=== PATIENT | male | born 1970 | race African-American/Black ===

== ENCOUNTER 2019-03-23 23:15 | Emergency (ER) | payer OTHER ==
[~2019-03-23] VITALS: Ht 177.8 cm; Wt 110.2 kg
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
[2019-03-23 23:37] VITALS: BP 120/73
[2019-03-23] MEDS ORDERED: CYCLOBENZAPRINE10 MG ORAL (23:58)
[2019-03-23] MEDS ORDERED: IBUPROFEN600 MG ORAL (23:58)
[2019-03-24 00:04] VITALS: BP 121/69
--- NOTE | 2019-03-24 00:05 | NUR ---
ER DISCHARGE NOTE: Patient is cleared to be discharged per ERMD, pt is aox4, on room air, with stable vital signs. pt was given dc and prescription instructions, pt was able to verbalize understanding, pt id band remvoed. pt is able to ambulate with steady gait. pt took all belongings.
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
== END 2019-03-24 00:03 | disposition home or self-care (01) ==
LOC: EMR 23:59
DX: S16.1XXA Strain of muscle, fascia and tendon at neck level, initial encounter (principal); S39.012A Strain of muscle, fascia and tendon of lower back, initial encounter; V43.52XA Car driver injured in collision with other type car in traffic accident, initial encounter; Y92.411 Interstate highway as the place of occurrence of the external cause; R73.03 Prediabetes; E11.9 Type 2 diabetes mellitus without complications
CPT/HCPCS: 99282